=== PATIENT | male | born 1985 | race Caucasian/White ===

== ENCOUNTER 2020-08-07 20:52 | Emergency (ER) | payer SELFPAY ==
[~2020-08-07] VITALS: Ht 172.7 cm; Wt 91.0 kg
[2020-08-07] MEDS ORDERED: LIDOCAINE HCL/EPINEPHRINE 1%-EPI 1:100,000 10 ML VIAL IJ ONE (21:45)
[2020-08-07] MEDS ORDERED: TETANUS, DIPHTHERIA, PERTUSSIS VAC/PF 0.5ML (>7YR OLD) IM ONE (21:45)
[2020-08-07] MEDS ORDERED: IBUPROFEN 600MG TABLET PO ONE (21:45)
[2020-08-07 22:20] VITALS: BP 148/102
[2020-08-07] MEDS ORDERED: CEPH500C2 MT (23:35)
== END 2020-08-08 00:30 | disposition home or self-care (01) ==
LOC: ER 20:52
DX: S01.81XA Laceration without foreign body of other part of head, initial encounter (principal); W22.09XA Striking against other stationary object, initial encounter; Y93.89 Activity, other specified; Y92.018 Other place in single-family (private) house as the place of occurrence of the external cause
CPT/HCPCS: 12011; 90471; 90715; 99283; A4217; J3490; Z7610